=== PATIENT | male | born 1960 | race Caucasian/White ===

== ENCOUNTER 2022-05-23 15:06 | Emergency (ER) | payer MEDICAID, SELFPAY ==
[2022-05-23] MEDS ORDERED: Dexamethasone 10 MG/ML VIAL ONE ×2 (17:38→17:45)
== END 2022-05-23 17:48 | disposition home or self-care (01) ==
LOC: CSHERS 15:06
DX: J01.90 Acute sinusitis, unspecified (principal); I25.10 Atherosclerotic heart disease of native coronary artery without angina pectoris; I50.9 Heart failure, unspecified; F17.220 Nicotine dependence, chewing tobacco, uncomplicated
CPT/HCPCS: 96372; 99283; J1100

== ENCOUNTER 2022-08-14 09:23 | Emergency (ER) | payer MEDICAID, OTHER ==
[2022-08-14] MEDS ORDERED: HYDROcodone/Acetaminophen 10/325 mg Tablet ONE (11:54)
== END 2022-08-14 12:36 | disposition home or self-care (01) ==
LOC: CSHERS 09:23
DX: S09.90XA Unspecified injury of head, initial encounter (principal); S16.1XXA Strain of muscle, fascia and tendon at neck level, initial encounter; I25.10 Atherosclerotic heart disease of native coronary artery without angina pectoris; I50.9 Heart failure, unspecified; F17.220 Nicotine dependence, chewing tobacco, uncomplicated; V89.2XXA Person injured in unspecified motor-vehicle accident, traffic, initial encounter
CPT/HCPCS: 70450; 72125; 93005

== ENCOUNTER 2022-09-04 13:24 | Emergency (ER) | payer MEDICAID, OTHER ==
[2022-09-04] MEDS ORDERED: Ketorolac Tromethamine 30 MG/ML VIAL ONE (13:42)
[2022-09-04] MEDS ORDERED: Morphine 2 MG/ML VIAL ONE (13:42)
[2022-09-04] MEDS ORDERED: Ondansetron PF 4 MG/2 ML Vial ONE (13:47)
[2022-09-04 13:55] LABS: #Eosinphils 0.3 10x3/uL (0.0-0.5); #Monocytes 0.5 10x3/uL (0.0-1.1); #Neutrophils 2.2 10x3/uL (1.5-8.4); %Basophils 0.2 % (0.0-2.0); %Eosinophils 7.1 % (0.0-6.0); %Lymphocytes 27.8 % (18.0-47.0); %Monocytes 12.2 % (0.0-10.0); %Neutrophils 52.5 % (40.0-75.0); Mean Corpuscular HGB CONC 35.2 g/dL (32.0-36.0); Mean Corpuscular Volume 88.2 fl (81.2-95.1); Mean Platelet Volume 11.7 fl (7.4-10.4); Platelet Count 72 10x3/uL (150-450); RBC Distribution Width 13.8 % (11.5-14.5); Red Blood Cell (RBC) Count 5.16 10x6/uL (4.32-5.72); White Blood Cell (WBC) Count 4.3 10x3/uL (3.5-10.5)
[2022-09-04 13:58] LABS: ALT (SGPT) 15 U/L (8-55); AST (SGOT) 48 U/L (5-34); Albumin 3.7 g/dL (3.4-4.8); Alkaline Phosphatase 132 U/L (40-110); Anion Gap 16 mmol/L (10-20); BUN (Urea Nitrogen) 11 mg/dL (8.4-25.7); Calc. Creatinine Clearance 0 mL/min (70-130); Carbon Dioxide 18 mmol/L (23-31); Chloride 108 mmol/L (98-107); Estimated GFR 97; Globulin 3.2 g/dL (2.4-3.5); Glucose 101 mg/dL (80-115); Lipase 51 U/L (8-78); Potassium 3.8 mmol/L (3.5-5.1); Protein, Total 6.9 g/dL (5.8-8.1); Sodium 138 mmol/L (136-145)
== END 2022-09-04 14:57 | disposition home or self-care (01) ==
LOC: CSHERS 13:24
DX: K42.0 Umbilical hernia with obstruction, without gangrene (principal); I50.9 Heart failure, unspecified; I25.10 Atherosclerotic heart disease of native coronary artery without angina pectoris; F17.220 Nicotine dependence, chewing tobacco, uncomplicated
CPT/HCPCS: 80053; 83690; 85025; 93005; 96374; 96375; J1885; J2272; J2405

== ENCOUNTER 2023-09-17 14:45 | Emergency (ER) | payer OTHER | END 2023-09-17 15:35 | disposition home or self-care (01) | LOC: CSHERS 14:45 | DX: S61.032A Puncture wound without foreign body of left thumb without damage to nail, initial encounter (principal); L03.012 Cellulitis of left finger; I25.10 Atherosclerotic heart disease of native coronary artery without angina pectoris; I50.9 Heart failure, unspecified; F17.220 Nicotine dependence, chewing tobacco, uncomplicated; W26.8XXA Contact with other sharp object(s), not elsewhere classified, initial encounter | CPT/HCPCS: 99283 ==

== ENCOUNTER 2023-10-15 10:01 | Emergency (ER) | payer OTHER ==
[2023-10-15] MEDS ORDERED: Ketorolac Tromethamine 30 MG (1 mL) VIAL ONE (12:25)
[2023-10-15 12:31] LABS: #Basophils 0.02 10x3/uL (0.0-0.2); #Eosinphils 0.34 10x3/uL (0.0-0.5); #Monocytes 0.57 10x3/uL (0.0-1.1); #Neutrophils 2.53 10x3/uL (1.5-8.4); %Basophils 0.4 % (0.0-2.0); %Eosinophils 7.4 % (0.0-6.0); %Lymphocytes 23.8 % (18.0-47.0); %Monocytes 12.3 % (0.0-10.0); %Neutrophils 54.8 % (40.0-75.0); Hematocrit 41.3 % (38.8-50.0); Hemoglobin 14.4 g/dL (13.5-17.5); Mean Corpuscular HGB CONC 34.9 g/dL (32.0-36.0); Mean Corpuscular Hemoglobin 31.9 pg (27.0-33.0); Mean Corpuscular Volume 91.6 fL (81.2-95.1); Mean Platelet Volume 10.7 fL (7.4-10.4); Platelet Count 91 10x3/uL (150-450); RBC Distribution Width 13.2 % (11.5-14.5); Red Blood Cell (RBC) Count 4.51 10x6/uL (4.32-5.72); White Blood Cell (WBC) Count 4.6 10x3/uL (3.5-10.5)
[2023-10-15 12:47] LABS: ALT (SGPT) 14 U/L (8-55); AST (SGOT) 37 U/L (5-34); Albumin 2.8 g/dL (3.4-4.8); Alkaline Phosphatase 153 U/L (40-110); Anion Gap 9 mmol/L (10-20); BUN (Urea Nitrogen) 13 mg/dL (8.4-25.7); Bilirubin, Total 1.1 mg/dL (0.2-1.2); Calc. Creatinine Clearance 0 mL/min (70-130); Calcium 8.8 mg/dL (7.8-10.44); Carbon Dioxide 23 mmol/L (23-31); Chloride 110 mmol/L (98-107); Estimated GFR 103; Globulin 3.4 g/dL (2.4-3.5); Glucose 97 mg/dL (80-115); Potassium 4.1 mmol/L (3.5-5.1); Protein, Total 6.2 g/dL (5.8-8.1); Sodium 138 mmol/L (136-145)
== END 2023-10-15 14:45 | disposition home or self-care (01) ==
LOC: CSHERS 10:01
DX: R60.0 Localized edema (principal); I50.9 Heart failure, unspecified; F17.220 Nicotine dependence, chewing tobacco, uncomplicated
CPT/HCPCS: 80053; 83880; 85025; 93971; 96372; 99284; J1885; 36415

== ENCOUNTER 2024-11-04 09:15 | Emergency (ER) | payer OTHER ==
[2024-11-04 10:28] LABS: Platelet Count 71 10x3/uL (150-450)
[2024-11-04 10:29] LABS: #Basophils Less than 0.03 10x3/uL (0.0-0.2); #Eosinophils 0.26 10x3/uL (0.0-0.5); #Monocytes 0.79 10x3/uL (0.0-1.1); #Neutrophils 3.03 10x3/uL (1.5-8.4); %Basophils 0.2 % (0.0-2.0); %Eosinophils 4.8 % (0.0-6.0); %Lymphocytes 24.6 % (18.0-47.0); %Monocytes 14.5 % (0.0-10.0); %Neutrophils 55.5 % (40.0-75.0); Hematocrit 44.4 % (38.8-50.0); Hemoglobin 15.1 g/dL (13.5-17.5); Mean Corpuscular Hemoglobin 31.5 pg (27.0-33.0); Mean Corpuscular Volume 92.5 fL (81.2-95.1); Red Blood Cell (RBC) Count 4.80 10x6/uL (4.32-5.72); White Blood Cell (WBC) Count 5.45 10x3/uL (3.5-10.5)
[2024-11-04 10:38] LABS: Troponin I 0.026 ng/mL (< 0.028)
[2024-11-04 10:43] LABS: ALT (SGPT) 17 U/L (Less than 45); AST (SGOT) 47 U/L (11-34); Albumin 3.5 g/dL (3.1-4.5); Alkaline Phosphatase 114 U/L (40-110); Anion Gap 16 mmol/L (10-20); BUN (Urea Nitrogen) 10 mg/dL (8.4-25.7); Bilirubin, Total 3.1 mg/dL (0.3-1.2); Calc. Creatinine Clearance 0 mL/min (70-130); Calcium 8.5 mg/dL (7.8-10.44); Carbon Dioxide 17 mmol/L (23-31); Chloride 109 mmol/L (98-107); Globulin 3.1 g/dL (2.4-3.5); Glucose 99 mg/dL (80-115); Potassium 4.0 mmol/L (3.5-5.1); Sodium 138 mmol/L (136-145)
[2024-11-04] MEDS ORDERED: Metoprolol Succinate XL 50 MG ER.TAB ONE (11:37)
[2024-11-04] MEDS ORDERED: Iopamidol 300 61% 100 ML VIAL FS ONE (11:38)
== END 2024-11-04 14:01 | disposition home or self-care (01) ==
LOC: CSHERS 09:15
DX: S80.11XA Contusion of right lower leg, initial encounter (principal); M62.838 Other muscle spasm; I25.10 Atherosclerotic heart disease of native coronary artery without angina pectoris; I50.9 Heart failure, unspecified; I25.2 Old myocardial infarction; F17.220 Nicotine dependence, chewing tobacco, uncomplicated; W11.XXXA Fall on and from ladder, initial encounter
CPT/HCPCS: 70450; 71260; 72125; 74177; 80053; 83880; 84484; 85025; 93005